=== PATIENT | male | born 1940 | race Caucasian/White ===

== ENCOUNTER 2021-02-20 18:45 | Emergency (ER) | payer OTHER ==
[2021-02-20] MEDS ORDERED: fentaNYL 100 MCG/2 ML SDV IVPUSH PRN (20:00)
[2021-02-20] MEDS ORDERED: Midazolam 1 MG/ML 2 ML SDV IVPUSH ONE ×2 (21:06→21:57)
[2021-02-20] MEDS ORDERED: fentaNYL 100 MCG/2 ML SDV IVPUSH ONE (21:57)
[2021-02-20] MEDS ORDERED: Orphenadrine 60 MG/2 ML Inj IV SCH (22:00)
[2021-02-20] MEDS ORDERED: Ondansetron 4 MG/2 ML SDV ONE (22:52)
[2021-02-20] MEDS ORDERED: Ondansetron 4 MG/2 ML SDV IVPUSH ONE (23:52)
--- NOTE | 2021-02-21 08:20 | CR ---
Date of Service: 02/20/21 Clinical Data: HIP DISLOCATED LEFT HIP: The patient is status post left hip arthroplasty. There is dislocation of the left hip prosthesis with superior dislocation of the femoral component with respect to the acetabular component. No fractures. No other significant findings. [id number] [facility]
--- NOTE | 2021-02-21 08:23 | CR ---
Date of Service: 02/20/21 Clinical Data: POST REDUCTION LEFT HIP: Comparison is made to a prior exam from earlier in the day. 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 No change in position of the femoral component with respect to the acetabular component. No new abnormalities. [id number] [facility]
--- NOTE | 2021-02-21 10:18 | EDM.PDOC ---
ED HPI GENERAL MEDICAL PROBLEM - General Chief Complaint: General Stated Complaint: HIP DISLOCATED Time Seen by Provider: 02/20/21 19:15 - History of Present Illness INITIAL COMMENTS - FREE TEXT/NARRATIVE: Patient states that he was looking at the back of his left leg to see if he was bitten by a bee. He had his left knee pulled inward and he feels that his left hip is now dislocated, because of a sudden painful sensation to the hip area. The patient has had bilateral hip replacements in the past with the left hip being done in approximately 2011. It is not giving him any issues so far. Patient denies falling and states he otherwise has been doing okay recently. Onset: Sudden Improves with: Reports: Immobilization Worsens with: Reports: Movement Left Hip Pain Score (Numeric/FACES): 3 - Related Data Allergies Allergy/AdvReac Type Severity Reaction Status Date / Time acetaminophen [From Vicodin] Allergy Other Verified 02/20/21 23:29 hydrocodone [From Vicodin] Allergy Other Verified 02/20/21 23:29 Home Meds: Home Meds Alfuzosin [Uroxatral] 10 mg PO DAILY 02/21/21 [History] Sertraline [Zoloft] 100 mg PO BEDTIME 02/21/21 [History] Simvastatin 20 mg PO BEDTIME 02/21/21 [History] amLODIPine [Norvasc] 5 mg PO DAILY 02/21/21 [History] atenoloL [Atenolol] 100 mg PO DAILY 02/21/21 [History] Past Medical History Cardiovascular History: Reports: Hypertension Psychiatric History: Reports: Anxiety, Depression Social & Family History - Family History Family Medical History: No Pertinent Family History - Tobacco Use Tobacco Use Status *Q: Never Tobacco User Second Hand Smoke Exposure: No - Caffeine Use Caffeine Use: Reports: Coffee - Recreational Drug Use Recreational Drug Use: No ED ROS GENERAL - Review of Systems Review Of Systems: Comprehensive ROS is negative, except as noted in HPI. Musculoskeletal: Reports: Other (Left hip pain that increases with movement.) ED EXAM, GENERAL - Physical Exam Exam: See Below Exam Limited By: No Limitations General Appearance: Alert, WD/WN, No Apparent Distress Ears: Normal External Exam, Normal Canal, Hearing Grossly Normal, Normal TMs Ear Exam: Bilateral Ear: Auricle Normal, Canal Normal, TM normal Nose: Normal Inspection, Normal Mucosa, No Blood Throat/Mouth: Normal Inspection, Normal Lips, Normal Teeth, Normal Gums, Normal Oropharynx, Normal Voice, No Airway Compromise Head: Atraumatic, Normocephalic Neck: Normal Inspection, Supple, Non-Tender, Full Range of Motion Respiratory/Chest: No Respiratory Distress, Lungs Clear, Normal Breath Sounds, No Accessory Muscle Use, Chest Non-Tender Cardiovascular: Normal Peripheral Pulses, Regular Rate, Rhythm, No Edema, No Gallop, No JVD, No Murmur, No Rub GI/Abdominal: Normal Bowel Sounds, Soft, Non-Tender, No Organomegaly, No Distention, No Abnormal Bruit, No Mass (Male) Exam: No Hernia, Normal Inspection, Normal Prostate, Circumcised Rectal (Males) Exam: Normal Exam, Normal Rectal Tone, Prostate Normal Back Exam: Normal Inspection, Full Range of Motion, NT Extremities: Normal Inspection, Normal Range of Motion, Non-Tender, No Pedal Edema, Normal Capillary Refill, Limited Range of Motion (of the left hip due to pain. At rest he feels only mild pain.) Neurological: Alert, Oriented, CN II-XII Intact, Normal Cognition, Normal Gait, Normal Reflexes, No Motor/Sensory Deficits Psychiatric: Normal Affect, Normal Mood Skin Exam: Warm, Dry, Intact, Normal Color, No Rash, Other (Pedal pulse is present on the left foot.) Lymphatic: No Adenopathy Course - Vital Signs Text/Narrative:: I had a discussion with the patient and his about his dislocated hip which was found on x-rays this evening it is a dislocated prosthetic hip. They want to go to [facility] in [place] for any treatment measures. I had a fairly lengthy conversation about trying to reduce the hip here initially which I feel should be done. The patient and his did agree to this. At this point an IV had been started the patient was given 50 mcg of fentanyl followed by 2 mg of Versed followed by a second dose of 2 mg of Versed. this did make the patient quite drowsy he was still responding to verbal stimuli his vital signs remained stable we had 2 nurses and x-ray tech and an ambulance personnel here a total of 4 people we tried multiple times to reduce the hip initially thinking we had it but x-rays showed that it was still was dislocated. We then gave the patient a muscle relaxer Norflex 60 mg IV and once again tried to reduce the hip unsuccessfully. At this point I consulted with the Jeovanny Vazquez and with his supervision he suggested the Captain Aparicio technique which we did try on 2 more attempts without success. At this point we discontinued trying to reduce the hip and the Jeovanny physician agreed that the patient needed deeper sedation than what we can [facility]. At this point more conversation was needed as the patient and his still wanted to go to [facility] we advised them that there would probably be a significant cost associated with traveling that far by [facility]. We did check with our local [facility] service and was given a cline of just over $17,000 if paid in maurice. At this point they agreed to go to [facility] to have the hip reduced on their way back to the [facility] tomorrow. I consulted with [facility] their orthopedic doctor Dr. Callahan is willing to accept the patient, but they do not have any beds therefore they cannot accept the patient tonight. At this point arrangements were made with further conversation again with the patient and his about where they would be willing to go. They did not want to go to [place] but they were willing to try [facility] which accepted the patient. Arrangements were made for the patient to be transferred to [facility] by ground ambulance/BLS.Condition on discharge is stable. Last Recorded V/S: Last Vital Signs Temp 99.0 F 02/20/21 18:45 Pulse 72 02/20/21 23:05 Resp 16 02/20/21 18:45 BP 150/72 H 02/20/21 23:05 Pulse Ox 95 02/20/21 23:05 - Orders/Labs/Meds Meds: Medications Discontinued Medications Generic Name Dose Route Start Last Admin Trade Name Arya PRN Reason Stop Dose Admin Fentanyl 50 mcg 02/20/21 20:00 02/20/21 20:09 Fentanyl 100 Mcg/2 Ml Sdv IVPUSH 50 mcg Q5M PRN Administration Pain Fentanyl 100 mcg 02/20/21 21:57 02/20/21 21:00 Fentanyl 100 Mcg/2 Ml Sdv IVPUSH 02/20/21 21:58 100 mcg ONETIME ONE Administration Midazolam HCl 2 mg 02/20/21 21:06 02/20/21 20:11 Midazolam 1 Mg/Ml 2 Ml Sdv IVPUSH 02/20/21 21:07 2 mg ONETIME ONE Administration Midazolam HCl 2 mg 02/20/21 21:57 02/20/21 20:15 Midazolam 1 Mg/Ml 2 Ml Sdv IVPUSH 02/20/21 21:58 2 mg ONETIME ONE Administration Ondansetron HCl Confirm 02/20/21 22:52 02/20/21 23:53 Ondansetron 4 Mg/2 Ml Sdv Administered 02/20/21 22:53 Not Given Dose 4 mg .ROUTE .STK-MED ONE Ondansetron HCl 4 mg 02/20/21 23:52 02/20/21 23:05 Ondansetron 4 Mg/2 Ml Sdv IVPUSH 02/20/21 23:53 4 mg ONETIME ONE Administration Orphenadrine Citrate 60 mg 02/20/21 22:00 02/20/21 20:49 Orphenadrine 60 Mg/2 Ml Inj IV 60 mg Q12H DOREEN Administration Departure - Departure Time of Disposition: 22:20 Disposition: DC/Tfer to Acute Hospital 02 Condition: Good Clinical Impression: Hip dislocation, left Qualifiers: Encounter type: initial encounter Qualified Code(s): S73.005A - Unspecified dislocation of left hip, initial encounter - Discharge Information *PRESCRIPTION DRUG MONITORING PROGRAM REVIEWED*: Yes *COPY OF PRESCRIPTION DRUG MONITORING REPORT IN PATIENT BUNNY: Yes (Pt was transferred by BLS. Using a full length air splint to support the pt.) Referrals: PCP,None [Primary Care Provider] - Forms: ED Department Discharge Sepsis Event Note (ED) - Evaluation Sepsis Screening Result: No Definite Risk - Focused Exam Vital Signs: Vital Signs Pulse BP Pulse Ox 02/20/21 23:05 72 150/72 H 95
== END 2021-02-20 23:10 ==
LOC: LB.ED 18:45
DX: T84.021A Dislocation of internal left hip prosthesis, initial encounter (principal); I10 Essential (primary) hypertension; Z88.5 Allergy status to narcotic agent; Z88.8 Allergy status to other drugs, medicaments and biological substances; Z79.899 Other long term (current) drug therapy; X50.1XXA Overexertion from prolonged static or awkward postures, initial encounter
CPT/HCPCS: 73501; 99153; 99283; A0425; A0429; J2250; J2360; J2405; J3010